=== PATIENT | male | born 1970 | race Caucasian/White ===

== ENCOUNTER 2016-09-02 16:23 | Emergency (ER) | payer OTHER ==
[2016-09-02 17:35] VITALS: BP 123/64
[2016-09-02] MEDS ORDERED: Amoxicillin CAP* 500 MG PO ONE (17:59)
[2016-09-02] MEDS ORDERED: guaiFENesin/CODIEN 100MG-10MG* 5 ML UDC PO ONE (18:06)
--- NOTE | 2016-09-02 18:11 | UC ---
Throat Pain/Nasal Tyrell HPI - HPI Summary HPI Summary: sinus congestion, AGUILAR, feels like he is in a fog. chills and cough present - History of Current Complaint Chief Complaint: UCGeneralIllness Stated Complaint: HEAD COLD Time Seen by Provider: 09/02/16 17:59 Hx Obtained From: Patient Onset/Duration: Sudden Onset, Lasting Days Severity: Moderate Associated Signs & Symptoms: Positive: Sinus Discomfort, Nasal Discharge - Allergies/Home Medications Allergies/Adverse Reactions: Allergies Allergy/AdvReac Type Severity Reaction Status Date / Time Bee Venom Allergy Edema Verified 09/02/16 17:35 [place] Oil Allergy GI Upset Verified 09/02/16 17:35 Home Medications: Home Medications Pseudoephedrine-Guaifenesin [Mucinex D 60-600 mg] 1 tab PO DAILY PRN 09/02/16 [ History Confirmed 09/02/16] PMH/Surg Hx/FS Hx/Imm Hx Previously Healthy: Yes - Surgical History Surgical History: None - Family History Known Family History: Positive: None, Unknown, Other - anaphylaxis "on both sides" - Social History Alcohol Use: Rare Substance Use Type: None Smoking Status (MU): Heavy Every Day Tobacco Smoker Type: Cigarettes Amount Used/How Often: 1 PPD Length of Time of Smoking/Using Tobacco: 33 YRS Have You Smoked in the Last Year: Yes Review of Systems Constitutional: Negative Skin: Negative Eyes: Negative ENT: Sore Throat, Ear Ache, Nasal Discharge Respiratory: Cough Cardiovascular: Negative Gastrointestinal: Negative Genitourinary: Negative Motor: Negative Neurovascular: Negative Musculoskeletal: Negative Neurological: Headache Psychological: Negative All Other Systems Reviewed And Are Negative: Yes Physical Exam Triage Information Reviewed: Yes Appearance: Well-Nourished, Ill-Appearing, Pain Distress Vital Signs: Initial Vital Signs Temp 98.9 F 09/02/16 17:30 Pulse 58 09/02/16 17:30 Resp 16 09/02/16 17:30 BP 123/64 09/02/16 17:30 Pulse Ox 98 09/02/16 17:30 Vital Signs Reviewed: Yes Eyes: Positive: Conjunctiva Clear ENT: Positive: Pharyngeal erythema, TM bulging, TM dull, TM red - right ear Dental Exam: Normal Neck exam: Normal Neck: Positive: Supple, Nontender, No Lymphadenopathy Respiratory Exam: Normal Respiratory: Positive: Chest non-tender, Lungs clear, Normal breath sounds Cardiovascular Exam: Normal Cardiovascular: Positive: RRR, No Murmur, Pulses Normal Abdominal Exam: Normal Abdomen Description: Positive: Nontender, No Organomegaly, Soft Bowel Sounds: Positive: Present Musculoskeletal Exam: Normal Musculoskeletal: Positive: Strength Intact, ROM Intact, No Edema Neurological Exam: Normal Neurological: Positive: Alert, Muscle Tone Normal Psychological Exam: Normal Skin Exam: Normal Throat Pain/Nasal Course/Dx - Course Course Of Treatment: hx obtained, exam performed, meds reviewed, treated for sinusitis and bronchospasm - Differential Dx/Diagnosis Differential Diagnosis/HQI/PQRI: Otitis Media, Pharyngitis, Sinusitis, URI Provider Diagnoses: sinusitis. bronchospasm Discharge - Discharge Plan Condition: Stable Disposition: HOME Prescriptions: Amoxicillin (*) [Amoxicillin 875 MG (*)] 875 mg PO BID #13 tab guaiFENesin/CODIEN 100MG-10MG* [Robitussin AC 100Mg-10Mg*] 10 ml PO BEDTIME PRN #50 udc MDD 10 ml PRN Reason: Cough predniSONE TAB* [Deltasone TAB*] 40 mg PO DAILY #14 tab Patient Education Materials: Sinusitis (ED) Additional Instructions: 1. take the mediation as prescribed. 2. Incrase your fluid intake and get plenty of rest. 3. Follow up as needed.
== END 2016-09-02 18:30 | disposition home or self-care (01) ==
LOC: UCCORT 16:23
DX: J32.9 Chronic sinusitis, unspecified (principal); J98.01 Acute bronchospasm; F17.210 Nicotine dependence, cigarettes, uncomplicated
CPT/HCPCS: 99212; A9270-GY; G0463

== ENCOUNTER 2016-09-11 10:12 | Emergency (ER) | payer OTHER ==
[2016-09-11 10:27] VITALS: BP 143/75
[2016-09-11] MEDS ORDERED: Lidocaine 2% PF* 10 ML AMP INJ ONE (10:46)
--- NOTE | 2016-09-11 10:46 | UC ---
Laceration HPI - HPI Summary HPI Summary: complaint of laceration on his right thumb was working on leveling stove and was cut by stainless steel edge this morning bleed a lot but isn't as painful anymore hasn't taken any medication for pain lat tetanus 2 years ago with PCP- Dr Ingram - History Of Current Complaint Chief Complaint: UCLaceration Stated Complaint: RIGHT HAND LACERATION Time Seen by Provider: 09/11/16 10:37 Hx Obtained From: Patient Laceration Location: Hand - Allergies/Home Medications Allergies/Adverse Reactions: Allergies Allergy/AdvReac Type Severity Reaction Status Date / Time Bee Venom Allergy Edema Verified 09/11/16 10:27 [place] Oil Allergy GI Upset Verified 09/11/16 10:27 Home Medications: Home Medications NK [No Home Medications Reported] 09/11/16 [History Confirmed 09/11/16] PMH/Surg Hx/FS Hx/Imm Hx Previously Healthy: Yes Cardiovascular History: Hypertension - Surgical History Surgical History: None - Family History Known Family History: Positive: None, Unknown, Other - anaphylaxis "on both sides" Negative: Hypertension, Diabetes - Social History Occupation: Employed Full-time Lives: With Family Alcohol Use: Rare Substance Use Type: None Smoking Status (MU): Heavy Every Day Tobacco Smoker Type: Cigarettes Amount Used/How Often: 1 PPD Length of Time of Smoking/Using Tobacco: 33 YRS Have You Smoked in the Last Year: Yes Cessation Counseling: Patient Advised to Stop Review of Systems Constitutional: Negative Skin: Other - laceration Eyes: Negative ENT: Negative Respiratory: Negative Cardiovascular: Negative Gastrointestinal: Negative Genitourinary: Negative Motor: Negative Neurovascular: Negative Musculoskeletal: Negative Neurological: Negative Psychological: Negative All Other Systems Reviewed And Are Negative: Yes Physical Exam Triage Information Reviewed: Yes Appearance: No Pain Distress, Well-Nourished Vital Signs: Initial Vital Signs Temp 98.2 F 09/11/16 10:21 Pulse 66 09/11/16 10:21 Resp 16 09/11/16 10:21 BP 143/75 09/11/16 10:21 Pulse Ox 100 09/11/16 10:21 Vital Signs Reviewed: Yes Respiratory: Positive: Lungs clear, Normal breath sounds, No respiratory distress, No accessory muscle use Cardiovascular: Positive: RRR, No Murmur, Pulses Normal Neurological: Positive: Alert Psychological Exam: Normal Skin Exam: Normal - right hand 4cm laceration lateral to thenar emminence Laceration Repair - Laceration Repair 1 Description: Linear Laceration Size After Repair: Length (cm) - 4, Width (mm) - 2, Depth (mm) - 2 Modified For Repair: No Type Injection: Local Anesthesia Used: 2.0% Lido Cleansing Completed Via Routine Prep: Yes Irrigation With Pressure Irrigation Device: Yes Closure Material: Sutures Closure Method: Single Layer Suture Of: Skin, SQ Suture Type: Nylon - 11 sutures Laceration Course/Dx - Differential Dx - Laceration/Wound Differental Diagnoses: Laceration Provider Diagnoses: laceration -simple, elevated blood pressure Discharge - Discharge Plan Condition: Stable Disposition: HOME Patient Education Materials: Laceration (ED) Referrals: Aamir Ingram DO [Primary Care Provider] - Additional Instructions: LACERATION What is a Laceration? Laceration is the medical name for a cut. Lacerations may be large or small. Some lacerations need stitches (also called sutures) to close them so they will heal well. Stitches usually need to be placed within 6 hours of injury. There are times when a wound may be determined to be too old for stitches. Stitches are removed when the wound is strong enough to stay closed, which is usually in 10 to 12 days, depending on where the wound or cut is located. Some stitches dissolve by themselves and do not need to be removed. If you have been given a numbing medicine, there will be some pain when it wears off. The pain from the wound should begin to decrease within one day. Treatment Recommendations: Keep the wound clean and dry for at least the next two (2) days. Keep the dressing clean if at all possible. If you must work in surroundings that will dirty the wound or dressing, wear a protective covering such as a glove. If the wound does get dirty, clean it as soon as you can with mild soap and water using a patting action. Do not rub or scrub vigorously. Then pat it dry completely. If a dressing was placed on the wound, you should put a clean one on at least daily and whenever you clean the wound. You can apply antibiotic ointment such as Bacitracin ointment to the wound each time you change the dressing. Avoid using the injured part as much as possible. If the wound is near a joint , try not to bend the joint too much. Elevate the injured part above your heart whenever possible to relieve throbbing. If you had stitches put in, you should see your healthcare provider in 1 to 2 days to have the wound checked for any signs or symptoms of infection. Some stitches will dissolve by themselves. Others will need to be removed. Make an appointment with your healthcare provider to have the stitches removed on the date instructed. An antibiotic medicine may be prescribed. The medicine should be taken until it is completely gone, even if you are feeling better. If you stop taking the medicine early, the infection may not be completely gone, and the medicine may not work the next time. Call Your Doctor or Return Here IF: Your wound becomes red, warm, swollen or more painful. There are red streaks coming from the wound. You develop a fever or shaking chills. Pus or bad smelling fluid comes out of the wound. You have any other symptoms that worry you. Your blood pressure is elevated. Please contact your primary care provider within 1 -4 weeks for further evaluation
[2016-09-11] MEDS ORDERED: Lidocaine 2% PF * 5 ML VIAL ONE (10:53)
== END 2016-09-11 11:38 | disposition home or self-care (01) ==
LOC: UCCORT 10:12
DX: S61.411A Laceration without foreign body of right hand, initial encounter (principal); W26.8XXA Contact with other sharp object(s), not elsewhere classified, initial encounter; F17.210 Nicotine dependence, cigarettes, uncomplicated
CPT/HCPCS: 12002; 99212; G0463; J2001

== ENCOUNTER → 2018-11-25 05:54 | Day surgery (SDC) | payer OTHER ==
[~2018-11-25 05:54] MED LIST: Buffered Lidocaine 1% SYRIN* 1 ML/SYRINGE INTRADERM ONE; Bupivacaine 0.25% SDV PF* 10 ML VIAL INJ ONE; Dexamethasone IV* 4 MG/ML 1 ML (4 MG) IV SLOW PU ONE; Dexamethasone IV* 4 MG/ML 1 ML (4 MG) ONE; Famotidine IV* 10 MG/ML 2 ML (20 mg) IV ONE; Famotidine IV* 10 MG/ML 2 ML (20 mg) ONE; Lactated Ringers 1000 ML Bag* 1,000 ML IV SCH; Lidocaine 1% INJ* 10 MG/ML 30 ML SDV ONE; Lidocaine 1% w EPI 1:200,000* SDV 30 ML VIAL ONE; Midazolam* 1 MG/ML 2 ML VIAL (2 MG) ONE; Naloxone* 0.4 MG/ML 1 ML VIAL IV PRN; Propofol* 10 MG/ML 20 ML BTL ONE; ceFAZolin 2 GM in NS PREMIX(*) 2 GM/100 ML BAG IVPB ONE; fentaNYL* 50 MCG/ML 2 ML VIAL (100 MCG VIAL) ONE
[2018-11-25 09:17] VITALS: BP 110/61
--- NOTE | 2018-11-25 11:06 | OP ---
Operative Report - Blank - Operative Report Date of Operation: 11/25/18 Note: PATIENT: Rich Pedraza DATE OF : 1970 DATE OF SURGERY: 11/25/2018 SURGEON: Catarino Santana MD PLASTIC MOLDING OPERATOR: None ANESTHESIOLOGIST: Dr. Chaney PREOPERATIVE DIAGNOSIS: Left anterior knee mass POSTOPERATIVE DIAGNOSIS: Left anterior knee mass OPERATION: Excision of left anterior knee mass ANESTHESIA: MAC IMPLANTS: none TOURNIQUET TIME: Less than 1 hour with a well-padded thigh tourniquet at 250mmHg SPECIMENS: Knee mass to pathology ESTIMATED BLOOD LOSS: minimal COMPLICATIONS: none STATUS: Stable from the operating room to the recovery room and then home. INDICATIONS FOR PROCEDURE: Rich has had a long-standing left anterior knee mass that occasionally drains. Both operative and non-operative treatment alternatives were reviewed. Further , the nature and risks of surgery were reviewed in careful detail. Our discussions regarding the risks of surgery included, but were not limited to, infection, wound problems, nerve injury, neuroma, RSD, persistent symptoms, recurrence, blood clot, need for further surgery, failure of the surgery, and even the remote chance of catastrophic complication. DESCRIPTION OF PROCEDURE: The patient was seen in the preoperative holding unit and informed written consent was obtained. The appropriate extremity was marked. The patient was then brought to the operating room and carefully positioned on the operating room table. Anesthesia was induced. All bony prominences were padded with great care. A well-padded thigh tourniquet was placed. A chlorhexidine based pre- scrub was performed followed by a chloraprep prep and drape in standard sterile fashion. A surgical safety pause was then conducted in which we confirmed the appropriate patient, extremity, planned procedure, availability of equipment, indication and administration of prophylactic antibiotics, and DVT prophylaxis in the form of a compression boot on the non-surgical extremity. I began with an Esmarch exsanguination of the limb and inflated the tourniquet. I made a longitudinal incision overlying the left anterior knee mass, and the ellipsed out the area where his sinus tract had been. I then used a 15 blade scalpel and tenotomy scissors to define the solid soft tissue mass. This was excised in its entirety. It was 2 cm in diameter. This was sent to pathology. Deep to this mass, there was excessive bursal tissue and fluid, which was also excised in its entirety. The wound was then copiously irrigated and meticulously closed in layers utilizing 0 Vicryl for the deep layer, 3-0 Monocryl for the dermal layer and 3- 0 nylon for the skin. A sterile dressing was then applied. I then placed him in a knee immobilizer. The patient was then awakened from anesthesia and transferred to the recovery room in stable condition. There were no complications. All needle and sponge counts were correct at the end of the case. ATTESTATION: I attest I was present and scrubbed and performed the critical portions of the procedure myself. POSTOPERATIVE PLAN: He will follow up in 2 weeks for likely suture removal.
--- NOTE | 2018-11-25 11:15 | OP ---
OPERATIVE REPORT: DATE OF OPERATION: 11/25/18 DATE OF : [birth year] SURGEON: Eusebio Delgado MD POULTICE MACHINE OPERATOR: MARIBEL Hernandez ANESTHESIOLOGIST: Dr. Chaney ANESTHESIA: Local MAC. PRE-OP DIAGNOSIS: Left index finger soft tissue mass over the palmar aspect of the metacarpophalange al joint. POST-OP DIAGNOSIS: Left index finger soft tissue mass over the palmar aspect of the metacarpophalang eal joint. OPERATIVE PROCEDURE: Excision of left palm and index finger, indeterminant soft tissue mass. INDICATIONS: Rich has a very large mass there, it is symptomatic. We talked about treatment option s, he want to have it excised. ESTIMATED BLOOD LOSS: 2 mL. COMPLICATIONS: None. FINDINGS: See above and below. DESCRIPTION OF PROCEDURE: Mr. Pedraza was seen in the preoperative holding area. The correct side, sit e and procedure were identified. We came back to the operating room. The arm was then prepped and d raped in the usual fashion. Time-out was performed. I had injected 0.25% plain Marcaine, a good char timeter and half proximal to the area of concern. I did not put the needle anywhere near the mass. After we did our time-out, I made a trapezoidal shape flap or incision and raised an ulnarly base fla p off of the mass. I put 1 transverse limb in the MCP joint/crease and the other one in the distal p almar crease. I raised a full thickness flap off the mass. Dissection was carried down deep to the fascia where the mass was excised. There was a significant pseudocapsule around it. It was fibrous in nature. I excised that as well. The radial digital nerve was identified and protected throughout the procedure. At this point, everything looked good. The mass was out. Digital neurovascular bun dle was preserved. The wound is copiously irrigated out. Skin was closed with 4-0 nylon suture. So ft dressing was applied and he was taken to the recovery room in stable condition. [id number]/[facility] #: [id number]
== END | disposition home or self-care (01) ==
LOC: OR 05:54
PROVIDERS: ATTEND Orthopaedic Surgery Hand Surgery
DX: L72.9 Follicular cyst of the skin and subcutaneous tissue, unspecified (principal); Z72.0 Tobacco use; F32.9 Major depressive disorder, single episode, unspecified; F10.21 Alcohol dependence, in remission
CPT/HCPCS: 88304; 88305; J0690; J1100; J2001; J2250; J2704; J3010; J3490